=== PATIENT | female | born 1955 | race Caucasian/White ===

== ENCOUNTER → 2017-06-27 | Outpatient (CLI) | payer BC ==
--- NOTE | 2017-06-27 13:01 | PN ---
PROGRESS NOTE A 62-year-old lady who has [facility] of obstructive sleep apnea-hypopnea syndrome. During previous visit about 1 year ago, patient demonstrated 100% compliance with treatment with CPAP with low pressure of 5 cm of water. Her respiration was on full control. For the last date of time, she was not able to use her machine basically with relationship to some mask problems. Nasal mask has leak to the eye area and she has some irritation of the eyes and she did not like other types of the masks. Recent candidiasis. [place] Sleepiness Scale today is 7. MEDICATIONS: Progesterone, levothyroxine, nystatin. PHYSICAL EXAM: Patient in no distress. BP 144/84, HR 82, RR 16, height 5, 3, weight 142.4, which is 1 pound more than during the previous visit, BMI 25.1, temperature 97.8, oxygen saturation at room air is 100%. OROPHARYNX: Moderately low soft palate. Retrognathic 1 mm. Slight restriction of nasal breathing. Neck Supple, no JVD. Thyroid is not palpable. LUNGS Clear to percussion and to auscultation. Good air exchange. No wheezing or rhonchi. HEART S1, S2 regular. No murmurs, gallops, or rubs. ABDOMEN Soft and nontender. Bowel sounds are present. No organomegaly appreciated. EXTREMITIES No clubbing or cyanosis. PLANNER SCHEDULER Awake, alert, and oriented X3. Cranial nerves 2 to 7 intact. There is no fasciculation or atrophy. noted. No focal deficits observed. IMPRESSION: 1. Mild obstructive sleep apnea-hypopnea syndrome. Presently, patient has difficulties to use nasal mask secondary to leak to the eye. 2. History of depression. 3. Hypothyroidism. 4. History of recent candidiasis. PLAN: 1. Patient will try to continue to use CPAP equipment. I will try different styles of nasal pillows, never has any leak to the eye area. 2. Patient may consider to use oral appliances for treatment of mild sleep apnea. 3. Sleep only on the side positions. Patient could use a tennis ball technique or other equipment to prevent sleep on the back. 4. Sleep hygiene with regular time in bed for at least 7-1/2 hours. 5. No driving if feeling any sleepiness. Thank you very much for allowing me to participate in the management of your patient. Sincerely, Jovanny Johnson MD, PhD, FAASM Diplomat of [place] [employer] [place] [employer] General Office Associate of [facility] [employer] MMJANEYL / SARKIS: [id number] /
== END ==
LOC: SLEEP 11:15
PROVIDERS: ATTEND Internal Medicine
DX: G47.33 Obstructive sleep apnea (adult) (pediatric) (principal); E03.9 Hypothyroidism, unspecified; F32.9 Major depressive disorder, single episode, unspecified; B37.9 Candidiasis, unspecified; Z79.899 Other long term (current) drug therapy

== ENCOUNTER → 2017-08-06 | Outpatient (CLI) | payer BC ==
--- NOTE | 2017-08-06 10:13 | MM ---
Reason for exam: clinical finding. Last mammogram was performed 1 year ago. History: Patient is postmenopausal. Benign cyst aspiration of the left breast, 2006. Took estrogen for 15 years beginning at age 50. Took progesterone for 11 years beginning at age 47. Indicated problem(s): lump or thickening in both breasts. Physical Findings: Nurse Summary: 1cm nodule in the right breast at 12 and 6 o'clock, a 1.5cm nodule in the left breast at 5 o'clock (nurse mj). MG Diagnostic Mammo w CAD ANTONIO Bilateral CC and MLO view(s) were taken. Prior study comparison: August 03, 2016, bilateral MG diagnostic mammo w CAD ANTONIO. July 06, 2015, right breast MG 3d work up w/cad RT. The breast tissue is heterogeneously dense. This may lower the sensitivity of mammography. Bilateral regional calcifications are unchanged back to 2014. Bilateral palpable markers, 2 on the right and 1 on the left. These results were verbally communicated with the patient and result sheet given to the patient on 08/06/17. ASSESSMENT: Incomplete: need additional imaging evaluation, BI-RAD 0 RECOMMENDATION: Ultrasound of both breasts.
--- NOTE | 2017-08-06 10:20 | USB ---
Reason for exam: additional evaluation requested from abnormal screening. History: Patient is postmenopausal. Benign cyst aspiration of the left breast, 2006. Took estrogen for 15 years beginning at age 50. Took progesterone for 11 years beginning at age 47. US Breast BILAT Right breast ultrasound includes all four quadrants, the retroareolar region and axilla. Finding demonstrates a 0.5 x 0.5 x 0.4cm cystic lesion at palpable, benign at 12 o'clock, a 0.5 x 0.3 x 0.6cm cystic lesion at 12 o'clock, a 0.8 x 0.3 x 0.7cm mixed lesion at 2 o'clock, a 0.7 x 0.5 x 0.7cm mixed lesion at the palpable at 5 o'clock for which a biopsy is recommended, a 2.1 x 0.7 x 1.9cm cystic lesion at 9 o'clock and a 3.0 x 1.1 x 1.3cm cystic cluster at 10 o'clock. Left breast ultrasound includes all four quadrants, the retroareolar region and axilla. Finding demonstrates a 1.9 x 0.7 x 1.4cm cystic lesion at 3 o'clock and a 1.3 x 0.9 x 1.8cm cystic lesion at palpable and benign at 5 o'clock. These results were verbally communicated with the patient and result sheet given to the patient on 08/06/17. ASSESSMENT: Suspicious, BI-RAD 4 RECOMMENDATION: Surgical consultation and ultrasound core biopsy of the right breast. (5 o'clock) Called Dr. Toth with mammographic findings and patient has requested to see surgeon at [place] with Dr. Montrell Moraes. PRELIMINARY REPORT CALLED AND FAXED TO DR. MORAES ON 08/06/17.
== END | disposition home or self-care (01) ==
LOC: RADMAMWWP 07:38
PROVIDERS: ATTEND Obstetrics & Gynecology Obstetrics
DX: R92.8 Other abnormal and inconclusive findings on diagnostic imaging of breast (principal); N63.0 Unspecified lump in unspecified breast
CPT/HCPCS: 76641; G0204

== ENCOUNTER → 2017-09-17 | Day surgery (SDC) | payer BC ==
[2017-09-17 12:07] VITALS: RESP 16; TEMP 97.8; BMI 24.4
[2017-09-17 13:12] VITALS: BP 143/90; PULSE 77
--- NOTE | 2017-09-17 14:37 | USB ---
EXAMINATION TYPE: US biopsy breast VAD RT DATE OF EXAM: 09/17/2017 CLINICAL HISTORY: abnormal us [id number],R92.8 Prev.Abn.Mammogra. Abnormal ultrasound TECHNIQUE: Ultrasound guided core biopsy of right breast. COMPARISON: NONE FINDINGS: The procedure of ultrasound guided core biopsy was explained to the patient. Benefits, alternatives, and risks were discussed. An informed consent was then obtained. Timeout was performed. The patient was placed in supine positioning for imaging and for the procedure. The overlying skin was prepped and draped in usual sterile fashion. Lidocaine buffered with bicarbonate was used as anesthetic into the skin and subcutaneous tissue up to area of concern in the right breast 5:00 position. A no was made with surgical scalpel. Under ultrasound guidance, a 12-gauge vacuum assisted biopsy gun device was used to obtain 6 core samples from above into the lesion. Following this, a biopsy clip was left in lesion. The patient tolerated the procedure well without any immediate complication. There was mild blood loss estimated at less than 5 mL. The patient was kept in the radiology department for short stay after the procedure and then discharged home in stable condition. Position ordered post procedure mammogram for clip placement was obtained. Ribbon clip is within the expected region on mammogram. IMPRESSION: 1. Successful ultrasound-guided core biopsy right breast ultrasound abnormality. Recommendations: 1. Recommendations are pending pathology results. Pathology Results: Benign BREAST, RIGHT, CORE BIOPSY: FIBROCYSTIC CHANGES INCLUDING CYSTS, FIBROSIS, APOCRINE METAPLASIA AND MILD USUAL TYPE DUCTAL HYPERPLASIA. Recommendation Follow up ultrasound of the right breast in 6 months. GALINA
--- NOTE | 2017-09-17 14:51 | MM ---
Reason for exam: additional evaluation requested from abnormal screening. Last mammogram was performed 1 month ago. History: Patient is postmenopausal. Benign cyst aspiration of the left breast, 2006. Took estrogen for 15 years beginning at age 50. Took progesterone for 11 years beginning at age 47. MG Diagnostic Mammo RT Wo CAD CC and LM view(s) were taken of the right breast. Prior study comparison: August 06, 2017, bilateral MG diagnostic mammo w CAD ANTONIO. August 03, 2016, bilateral MG diagnostic mammo w CAD ANTONIO. ASSESSMENT: Post procedure mammogram for marker placement RECOMMENDATION: Ultrasound of the right breast in 6 months. PENDING PATHOLOGY RESULTS.
== END ==
LOC: RADUSWWP 11:44
PROVIDERS: ATTEND Surgery
DX: N60.31 Fibrosclerosis of right breast (principal); N60.81 Other benign mammary dysplasias of right breast; N60.91 Unspecified benign mammary dysplasia of right breast; R92.8 Other abnormal and inconclusive findings on diagnostic imaging of breast
CPT/HCPCS: 88305; 77065; 19083; A4648; J2001

== ENCOUNTER → 2018-05-02 | Outpatient (CLI) | payer BC ==
--- NOTE | 2018-05-02 12:09 | USB ---
Reason for exam: follow-up at short interval from prior study. History: Patient is postmenopausal. Benign US biopsy breast VAD RT of the right breast, September 17, 2017. Benign cyst aspiration of the left breast, 2006. Took estrogen for 15 years beginning at age 50. Took progesterone for 11 years beginning at age 47. Physical Findings: Nurse Summary: 1cm round movable nodules right breast 9 o'clock and 12 o'clock, left breast 5 o'clock (nurse mj). US Breast RT Right complete breast ultrasound includes all four quadrants, the retroareolar region and axilla. Finding demonstrates a 0.6 x 0.5 x 0.5cm cystic, stable lesion at 12 o'clock, a 0.7 x 0.4 x 0.2cm stable lesion too small to characterize at 1 o'clock and a 2.4 x 1.6 x 1.0cm cystic, stable lesion at 9 o'clock. These results were verbally communicated with the patient and result sheet given to the patient on 05/02/18. ASSESSMENT: Benign, BI-RAD 2 RECOMMENDATION: Follow-up diagnostic mammogram of both breasts in 3 months. Back on schedule.
== END | disposition home or self-care (01) ==
LOC: RADUSWWP 06:56
PROVIDERS: ATTEND Obstetrics & Gynecology Obstetrics
DX: R92.8 Other abnormal and inconclusive findings on diagnostic imaging of breast (principal)

== ENCOUNTER → 2019-07-16 | Outpatient (CLI) | payer MEDICARE ==
--- NOTE | 2019-07-16 18:05 | BD ---
EXAMINATION TYPE: Axial Bone Density DATE OF EXAM: 07/16/2019 COMPARISON: 2006 CLINICAL HISTORY: post menopausal Height: 5'3 Weight: 140 FRAX RISK QUESTIONS: History of Fracture in Adulthood: y Secondary Osteoporosis: RISK FACTORS HISTORY OF: Diet low in dairy products/other sources of calcium: y Postmenopausal woman: y MEDICATIONS: Thyroid Medications: Which medication: Synthroid How Lon-20 years Additional Medications: Additional History: EXAM MEASUREMENTS: Bone mineral densitometry was performed using the [employer]. Bone mineral density as measured about the Lumbar spine is: ----- L1-L4(G/cm2): 1.116 T Score Values are as follows: ----- L2: -0.9 ----- L3: 0.3 ----- L4: -0.6 ----- L1-L4: -0.5 Bone mineral density has: Increased 3.5% since study of: 12/12/2006 Bone mineral density about the R hip (g/cm2): 0.871 Bone mineral density about the L hip (g/cm2): 0.846 T Score values are as follows: -----R Neck: -1.2 -----L Neck: -1.4 -----R Total: -0.5 -----L Total: -1.1 Bone mineral density has: Decreased -3.7% since study of: 12/12/2006 IMPRESSION: Osteopenia (T Score between -2.5 and -1) present femoral neck level both hips. There is slightly increased risk of fracture and the patient may be considered for treatment. Re-Screen 2-5 years. NOTE: T-SCORE=SD OF THE YOUNG ADULT MEAN.
--- NOTE | 2019-07-18 08:05 | MM ---
Reason for exam: additional evaluation requested from prior study. Last mammogram was performed 1 year and 10 months ago. History: Patient is postmenopausal. Benign US biopsy breast VAD RT of the right breast, September 17, 2017. Benign cyst aspiration of the left breast, 2006. Took estrogen for 15 years beginning at age 50. Took progesterone for 11 years beginning at age 47. Physical Findings: Nurse Summary: 2.5cm nodule in the right breast at 9 o'clock (nurse mj). MG Diagnostic Mammo w CAD ANTONIO Bilateral CC and MLO view(s) were taken. Prior study comparison: September 17, 2017, right breast MG diagnostic mammo RT wo CAD. August 06, 2017, bilateral MG diagnostic mammo w CAD ANTONIO. The breast tissue is heterogeneously dense. This may lower the sensitivity of mammography. Finding #1: There is a 27 mm circumscribed oval mass in the upper outer quadrant, posterior position of the right breast, corresponds to palpable. Finding #2: There are typically benign round, diffuse/scattered and regional calcifications in both breasts. These results were verbally communicated with the patient and result sheet given to the patient on 07/16/19. ASSESSMENT: Incomplete: need additional imaging evaluation, BI-RAD 0 RECOMMENDATION: Ultrasound of the right breast.
--- NOTE | 2019-07-18 08:10 | USB ---
Reason for exam: additional evaluation requested from abnormal screening. History: Patient is postmenopausal. Benign US biopsy breast VAD RT of the right breast, September 17, 2017. Benign cyst aspiration of the left breast, 2006. Took estrogen for 15 years beginning at age 50. Took progesterone for 11 years beginning at age 47. US Breast Limited RT Right limited breast ultrasound including focal area of concern, retroareolar and axilla demonstrates a 2.3 x 1.4 x 2.3cm oval, cystic lesion at 9 o'clock BB, a 3.0 x 1.1 x 2.3cm oval, cystic lesion at 10 o'clock and a 0.6 x 0.5 x 0.5cm oval, mixed lesion at 10 o'clock, probable debris filled cyst. These results were verbally communicated with the patient and result sheet given to the patient on 07/16/19. ASSESSMENT: Probably benign, BI-RAD 3 RECOMMENDATION: Ultrasound of the right breast in 6 months.
== END ==
LOC: RADMAMWWP 15:09
PROVIDERS: ATTEND Obstetrics & Gynecology
DX: R92.8 Other abnormal and inconclusive findings on diagnostic imaging of breast (principal); M85.89 Other specified disorders of bone density and structure, multiple sites
CPT/HCPCS: 77066; 77080

== ENCOUNTER → 2020-02-10 | Outpatient (CLI) | payer MEDICARE ==
--- NOTE | 2020-02-10 09:21 | USB ---
Reason for exam: follow-up at short interval from prior study. History: Patient is postmenopausal. Benign US biopsy breast VAD RT of the right breast, September 17, 2017. Benign cyst aspiration of the left breast, 2006. Took estrogen for 15 years beginning at age 50. Took progesterone for 11 years beginning at age 47. Physical Findings: Nurse Summary: small palpable lump right breast 5 o'clock, palpable area right breast 10 o'clock (nurse TM). US Breast Limited RT Right limited breast ultrasound including focal area of concern, retroareolar and axilla demonstrates a 0.4 x 0.4 x 0.4cm lesion too small to characterize at 7 o'clock, a 0.9 x 0.7 x 0.9cm cystic lesion at 9 o'clock, a 2.1 x 0.9 x 1.2cm cystic lesion at 10 o'clock and a 0.5 x 0.4 x 0.4cm mixed lesion at 10 o'clock decreased echoes from prior. Simple cyst and debris filled thin walled cysts. These results were verbally communicated with the patient and result sheet given to the patient on 02/10/20. ASSESSMENT: Benign, BI-RAD 2 RECOMMENDATION: Routine screening mammogram of both breasts in 5 months. Back on schedule for June 2020.
== END | disposition home or self-care (01) ==
LOC: RADUSWWP 08:18
PROVIDERS: ATTEND Radiology Diagnostic Radiology
DX: R92.8 Other abnormal and inconclusive findings on diagnostic imaging of breast (principal)

== ENCOUNTER → 2020-09-21 | Outpatient (CLI) | payer MEDICARE ==
--- NOTE | 2020-09-22 12:08 | MM ---
Reason for exam: screening (asymptomatic). Last mammogram was performed 1 year and 2 months ago. History: Patient is postmenopausal. Benign US biopsy breast VAD RT of the right breast, September 17, 2017. Benign cyst aspiration of the left breast, 2006. Took estrogen for 15 years beginning at age 50. Took progesterone for 11 years beginning at age 47. Physical Findings: A clinical breast exam by your physician is recommended on an annual basis and results should be correlated with mammographic findings. MG 3D Screening Mammo W/Cad Bilateral CC and MLO view(s) were taken. Prior study comparison: July 16, 2019, bilateral MG diagnostic mammo w CAD ANTONIO. September 17, 2017, right breast MG diagnostic mammo RT wo CAD. The breast tissue is heterogeneously dense. This may lower the sensitivity of mammography. Previous mammotome biopsy in the right breast. No significant changes when compared with prior studies. ASSESSMENT: Benign, BI-RAD 2 RECOMMENDATION: Routine screening mammogram of both breasts in 1 year.
== END | disposition home or self-care (01) ==
LOC: RADMAMWWP 08:13
PROVIDERS: ATTEND Obstetrics & Gynecology
DX: Z12.31 Encounter for screening mammogram for malignant neoplasm of breast (principal)
CPT/HCPCS: 77063; 77067